=== PATIENT | female | born 1960 | race Caucasian/White ===

== ENCOUNTER 2018-11-13 07:47 | Day surgery (SDC) | payer BC, OTHER ==
[~2018-11-13] VITALS: Ht 152.4 cm; Wt 93.0 kg
[~2018-11-13 07:47] MED LIST: ACET325T33 PO; BECL8.7A INH; ENAL10TA PO; OMEP20CA16 PO; ONDA4TAB14 PO; VALS160T20 PO
[2018-11-13 08:30] VITALS: Ht 152.4 cm; Wt 93.0 kg
[2018-11-13] MEDS ORDERED: loratidine (08:36)
[2018-11-13] MEDS ORDERED: ventolin (08:36)
[2018-11-13] MEDS ORDERED: gabapentin (08:36)
[2018-11-13] MEDS ORDERED: naproxen (08:36)
[2018-11-13] MEDS ORDERED: trazadone (08:36)
[2018-11-13] MEDS ORDERED: vitamin d3 (08:36)
[2018-11-13] MEDS ORDERED: vitamin b (08:36)
[2018-11-13] MEDS ORDERED: lisinopril (08:36)
[2018-11-13] MEDS ORDERED: breo ellipta (08:36)
[2018-11-13] MEDS ORDERED: sertraline (08:36)
[2018-11-13] MEDS ORDERED: montelukast (08:36)
[2018-11-13] MEDS ORDERED: fluticasone (08:36)
--- NOTE | 2018-11-13 08:47 | PREAC ---
Date/Time of Note Date/Time of Note DATE: 11/13/18 TIME: 08:47 Anesthesia Eval and Record Evaluation Time Pre-Procedure Interview DATE: 11/13/18 TIME: 08:47 Age 58 Sex female NPO: 8 hrs Preoperative diagnosis Colon screening Planned procedure Colonoscopy Past Medical History Past Medical History: Includes Cardio: HTN Pulm: Asthma GI: Morbid obesity Surgery & Anesthesia Issues No known issue Meds Anticoagulation: No Beta Morena within 24 hr: No Reason Beta Morena not given: Pt. not on B-Morena Active Scripts Ondansetron (Ondansetron Odt) 4 Mg Tab.rapdis, 4 MG PO Q6H PRN for NAUSEA AND/OR VOMITING, #10 TAB Prov:KENZIE ZIEGLER, POURER B[employer]ADLE 09/21/16 Reported Medications [vitamin d3] No Conflict Check 11/13/18 [vitamin b] No Conflict Check 11/13/18 [ventolin] No Conflict Check 11/13/18 [trazadone] No Conflict Check 11/13/18 [sertraline] No Conflict Check 11/13/18 [naproxen] No Conflict Check 11/13/18 [montelukast] No Conflict Check 11/13/18 [loratidine] No Conflict Check 11/13/18 [lisinopril] No Conflict Check 11/13/18 [gabapentin] No Conflict Check 11/13/18 [fluticasone] No Conflict Check 11/13/18 [breo ellipta] No Conflict Check 11/13/18 Discontinued Reported Medications Beclomethasone Dip* (Qvar 40*) 7.3 Gm Inha, 1 PUFF INH BID PRN for SHORTNESS OF BREATH, INH 11/09/14 Enalapril Maleate* (Enalapril Maleate*) 10 Mg Tablet, 10 MG PO BID, TAB 11/09/14 Valsartan* (Diovan*) 160 Mg Tablet, 160 MG PO DAILY, TAB 11/09/14 Discontinued Scripts Acetaminophen* (Tylenol*) 325 Mg Tablet, 2 TAB PO Q8 PRN for PAIN AND OR ELEVA IZABELA TEMP, #20 TAB Prov:KENZIE ZIEGLER, P[employer]ER B[employer]ADLE 09/21/16 Omeprazole* (Omeprazole*) 20 Mg Capsule.dr, 20 MG PO DAILY, #14 Prov:KENZIE ZIEGLER, [employer]LE 09/21/16 Meds reviewed: Yes Allergies Coded Allergies: No Known Allergy (Unverified , 11/13/18) Allergies Reviewed: Yes Labs/Studies Labs Reviewed: Reviewed by anesthesiologist test: N/A Pre-procedure Exam Airway: Adequate mouth opening Mallampati: Mallampati II Teeth: Normal Lung: Normal Heart: Normal ASA Physical Status ASA physical status: 3 Emergency: None Planned Pain Management Parenteral pain med Pre-operative Attestations Prior to commencing anesthesia and surgery, the patient was re-evaluated, there was verification of: *The patient's identity *The results of appropriate recent lab work and preoperative vital signs *The above evaluation not changing prior to induction *Anesthetic plan, risk benefits, alternative and complications discussed with patient/family; questions answered; patient/family understands, accepts and wishes to proceed. VASILIY CARRILLO MD Nov 13, 2018 08:47
[2018-11-13 08:49] VITALS: BP 152/85; RESP 26
[2018-11-13] MEDS ORDERED: PROPOFOL 20 ML ONE (09:04)
--- NOTE | 2018-11-13 10:21 | PAC ---
Date/Time of Note Date/Time of Note DATE: 11/13/18 TIME: 10:20 Post-Anesthesia Notes Post-Anesthesia Note Last documented vital signs Vital Signs Date Temp Pulse Resp B/P (MAP) Pulse Ox O2 O2 Flow FiO2 Time Delivery Rate 11/13/18 97.9 26 152/85 100 Room Air 08:49 (107) Activity: WNL Respiratory function: WNL Cardiovascular function: WNL Mental status: Baseline Pain reasonably controlled: Yes Hydration appropriate: Yes Nausea/Vomiting absent: Yes Comments TEMP: 98, SAT: 93, BP: 116/64, PULSE: 71 VASILIY CARRILLO MD Nov 13, 2018 10:21
[2018-11-13 10:40] VITALS: BP 127/80; PULSE 76; RESP 18
== END 2018-11-13 14:53 | disposition home or self-care (01) ==
LOC: GIL 07:47
PROVIDERS: ATTEND Internal Medicine Gastroenterology
DX: Z12.11 Encounter for screening for malignant neoplasm of colon (principal); D12.3 Benign neoplasm of transverse colon
CPT/HCPCS: 45385; 84703; 88305; Z7610